=== PATIENT | male | born 1995 | race Caucasian/White ===

== ENCOUNTER 2017-07-14 20:17 | Emergency (ER) | payer OTHER ==
[~2017-07-14] VITALS: Ht 177.8 cm; Wt 87.1 kg
[2017-07-14 20:58] LABS: HEMATOCRIT 40.4 % (38.0-50.0); HEMOGLOBIN 14.2 G/DL (12.5-16.6); MCH 30.7 PG (29.0-34.0); MCHC 35.1 G/DL (30.0-36.0); MCV 87.3 FL (86-99); PLATELET COUNT 206 K/uL (156-360); RBC DIS.WIDTH-CV 11.3 % (11.8-14.6); RBC DIS.WIDTH-SD 36.2 % (39-53); RED BLOOD COUNT 4.63 M/uL (4.00-5.50); WHITE BLOOD COUNT 6.8 K/uL (4.1-10.2)
[2017-07-14] MEDS ORDERED: METOPROLOL TART50 MG PO (21:04)
[2017-07-14 21:07] LABS: ALBUMIN 3.9 g/dL (3.2-4.8); CHLORIDE 106 mEq/L (99-109); POTASSIUM 3.4 mEq/L (3.7-5.4); SODIUM 139 mEq/L (136-147)
[2017-07-14 21:09] LABS: GLUCOSE 90 mg/dL (70-99); TOTAL PROTEIN 6.8 g/dL (6.4-8.3)
[2017-07-14 21:11] LABS: TOTAL BILIRUBIN 0.5 mg/dL (0.0-1.0)
[2017-07-14 21:13] LABS: ALKALINE PHOSPHATASE 44 IU/L (3-129); CREATININE 0.8 mg/dL (0.6-1.3)
[2017-07-14 21:14] LABS: UREA NITROGEN (BUN) 12 mg/dL (9-23)
[2017-07-14 21:15] LABS: AST (GOT) 17 IU/L (2-34)
[2017-07-14 21:16] LABS: ALT (GPT) 15 IU/L (3-49)
[2017-07-14 21:20] LABS: GFR ESTIMATE (CALCULATED) > 59 mL/min/ (58.99-99999); TROP-I INTERPRETATION NEGATIVE; TROPONIN-I < 0.01 ng/mL (0.0-0.30)
[2017-07-14] MEDS ORDERED: LEVAQUIN750 MG PO (21:53)
[2017-07-14 23:07] VITALS: BP 127/60
== END 2017-07-14 23:36 | disposition home or self-care (01) ==
LOC: EME 20:17
PROVIDERS: Emergency Medicine Emergency Medical Services
DX: I48.91 Unspecified atrial fibrillation (principal); J18.9 Pneumonia, unspecified organism; E86.0 Dehydration; I51.7 Cardiomegaly; F41.9 Anxiety disorder, unspecified; Z95.0 Presence of cardiac pacemaker
CPT/HCPCS: 71046; 80053; 84484; 85027; 93005; 99281; 99285; J7030